=== PATIENT | female | born 1950 | race Caucasian/White ===

== ENCOUNTER 2018-12-31 11:17 | Inpatient (IN) | payer OTHER, MEDICARE ==
[~2018-12-31] VITALS: Ht 152.4 cm; Wt 73.0 kg
[2018-12-31] VITALS (27 sets, daily range): BP systolic 94–144; BP diastolic 42–72
[~2018-12-31 11:17] MED LIST: ASPI-555 PO; ATOR20TA65 PO; CHOL500050 PO; HYDR12.530 PO; LOSA100T58 PO
[2018-12-31] MEDS ORDERED: DAPTOMYCIN 500 MG in SODIUM CHLORIDE 0.9% 50 ML IV SCH (14:00)
[2018-12-31] MEDS ORDERED: HYDRALAZINE HCL 20 MG/ML VIAL IV PRN (14:30)
[2018-12-31] MEDS ORDERED: LIDOCAINE HCL-MPF 1% 2ML VIAL IVP PRN (14:30)
--- NOTE | 2018-12-31 14:30 | NUR ---
RECEIVED PT FROM [facility]. ASSESSMENT COMPLETED NOTED. DR. SOSA CALLED AND NOTIFIED OF PT ARRIVAL TO UNIT. PT DAUGHTERS INFORMATION GIVEN TO MD TO SPEAK TO HER REGARDING PLAN OF CARE. MD RETURNED CALL, PLAN FOR EXP LAP, ABDOMINAL WASHOUT AND NECESSARY PROCEDURES. DAUGHTER CALLED AND TELEPHONE CONSENT OBTAINED AND WITNESSED WELL DNR PER DAUGHTER REQUEST. SURGERY SCHEDULED. VS NOTED ON COMPUTER. CONTINUE TO MONITOR PT.
[2018-12-31] MEDS ORDERED: PHARMACY COMMUNICATION MISC SCH ×2 (14:45→18:45)
--- NOTE | 2018-12-31 15:00 | NUR ---
DR. SMITH, DR. PEDRO AND DR. MORA NOTIFIED OF PT ARRIVAL TO UNIT.
[2018-12-31 15:08] LABS: HEMATOCRIT 39.3 % (36-48); MEAN CORPUSCULAR HEMOGLOBIN 30.7 pg (27.0-33.0); MEAN CORPUSCULAR VOLUME 96.1 fL (79-99); NUCLEATED RED BLOOD CELLS 0.3 % (0.0-0.19); PLATELET COUNT (AUTO) 201 K/uL (130-400); RED BLOOD CELL COUNT(AUTO) 4.09 MIL/uL (4.00-5.50); RED CELL DISTRIBUTION WIDTH 19.6 % (11.0-15.5)
[2018-12-31 15:15] LABS: INR 1.09 (0.85-1.15); PROTHROMBIN TIME 11.4 SEC (9.6-11.6)
[2018-12-31 15:18] LABS: CREATININE 2.3 mg/dL (0.5-1.5); POTASSIUM 4.8 mmol/L (3.5-5.1)
[2018-12-31] MEDS ORDERED: ROCURONIUM 10MG/1ML SYR 10 MG/ML ML ONE (15:40)
[2018-12-31] MEDS ORDERED: EPHEDRINE SULFATE 50 MG/ML AMPULE ONE (15:41)
[2018-12-31] MEDS ORDERED: COMPOUND IV REFRIGERATED 1 EACH IVSOLN MISC PRN (16:00)
--- NOTE | 2018-12-31 16:00 | NUR ---
PT TAKEN TO SURGERY BY OR NURSE AND HEAD OF CONSERVATION IN STABLE CONDITION.
[2018-12-31] MEDS ORDERED: FENTANYL CITRATE PF 50 MCG/1 ML 2ML VIAL ONE (16:19)
--- NOTE | 2018-12-31 16:44 | NUR ---
Patient trached, on ventilator. Unable to obtain history for evaluation from patient, no family members available. Information gathered from last admission. Addendum: 12/31/18 at 1715 by JAY VIDALES RT Amended: Links added.
[2018-12-31] MEDS ORDERED: M.V.I. IV [ADULT] 10 ML in CLINIMIX E 5%-15% 2,000 ML IV SCH (16:54)
--- NOTE | 2018-12-31 17:45 | NUR ---
RECEIVED PT FROM OR. PT UNABLE TO OPEN EYES OR FOLLOW COMMANDS AT THIS TIME. TOLERATING VENT SETTINGS. [id number] TO ABD AND LEFT ILIOSTOMY INTACT. VS NOTED ON COMPUTER. NO S/S OF PAIN NOTED. CONTINUE TO MONITOR PT.
[2018-12-31] MEDS: MEROPENEM 500 MG VIAL IVP SCH (17:54)
[2018-12-31] MEDS ORDERED: INSULIN HUMULIN R 100 UNIT/ML 3ML SQ SCH ×2 (18:00→22:00)
[2018-12-31] MEDS ORDERED: ALBUMIN (HUMAN) 5% 250 ML IV SCH (18:15)
--- NOTE | 2018-12-31 18:25 | NUR ---
DR. MORA CALLED AND NOTIFIED OF PT ARRIVAL TO UNIT, NOTIFIED OF DECREASED URINE OUTPUT, VS, LAST BUN/CREAT RESULTS. NEW ORDERS RECEIVED AND NOTED.
[2018-12-31] MEDS: LACTATED RINGERS 1000ML 1,000 ML IV SCH (18:38)
[2018-12-31] MEDS: IPRATROPIUM/ALBUTEROL SULFATE 3 ML SOLUTION IH SCH ×2 (18:49→23:32)
--- NOTE | 2018-12-31 19:00 | NUR ---
ASSESSMENT ASSUMED CARE. DROWSY, SLIGHTLY AROUSABLE. TRACHE WITH VENT ON PRESCRIBED SETTINGS. ABD DRESSING INTACT WITH SMALL DIME SIZE DRAINAGE SPOT MARKED. PEG TUBE INTACT. LEFT ILEOSTOMY WITH SCANT AMOUNT OF SANGUINOUS DRAINAGE NOTED. LOMAX CATHETER SECURE & PATENT, SMALL AMT OF URINE OUTPUT NOTED. PENDING IV ALBUMIN PER MD ORDER. NOTIFIED PHARMACY. TPN AND LR INFUSING WELL VIA PICC LINE. R.T. IN ROOM PROVIDING ORAL CARE & SUCTIONING. BEDSIDE MONITORING SINUS RHYTHM HR 94. BLE'S WITH SCD'S. COMPLETE ASSESSMENT DOCUMENTED.
--- NOTE | 2018-12-31 19:21 | NUR ---
DR SMITH HERE TO SEE PT UPDATED.
--- NOTE | 2018-12-31 20:05 | NUR ---
nonresponsive to painful stimuli pupils reactive bilaterally. no cough or gag reflex. sinus rhythm hr 92 bp 120/67 o2 sat 97% not breathing over vent. notified dr torres. ordered abg's.
[2018-12-31 20:21] LABS: ABG BASE EXCESS -11.3 mmol/L (-2.0-3.0); ABG HCO3 14.1 mmol/L (21.0-28.0); ABG OXYGEN SATURATION 95.4 % (95.0-99.0); ABG PCO2 31 mmHg (32-45)
--- NOTE | 2018-12-31 20:40 | NUR ---
reported abg results to ochoa metal handler for benchmark. updated regarding patient status and current iv fluids, urine output, v/s. order received to give 2 amps of sodium bicarb.
[2018-12-31] MEDS ORDERED: SODIUM BICARB 50MEQ 50ML VIAL ONE (20:43)
[2018-12-31] MEDS ORDERED: SODIUM BICARB 50MEQ 50ML VIAL IV ONE (21:01)
--- NOTE | 2018-12-31 21:34 | NUR ---
NOW BREATHING OVER VENT WITH RR 22-23PM. SKIN WITH BETTER COLOR. NOW MORE RESPONSIVE. SHAKES HEAD AND ATTEMPTS TO OPEN EYES TO VERBAL STIMULI. Addendum: 12/31/18 at 2137 by STACY POSADA RN RN Amended: Links added.
[2019-01-01] VITALS (25 sets, daily range): BP systolic 79–162; BP diastolic 38–104
[2019-01-01] MEDS: METOPROLOL TARTRATE 50 MG TAB PO SCH ×4 (00:22→21:39)
[2019-01-01] MEDS: INSULIN HUMULIN R 100 UNIT/ML 3ML SQ SCH ×4 (01:59→18:17)
--- NOTE | 2019-01-01 02:27 | NUR ---
tachycardia/tachypnea sinus tachycardia with hr 107. respiratory rate 30-34pm. afebrile with axillary temp 98.4. asked if she is in pain and shakes head "no". will continue to monitor.
--- NOTE | 2019-01-01 04:00 | NUR ---
dressing change. rt abd dressing copiously soaked with serous sanguinous drainage. removed dressing; caridad drain noted and trickling serous sanguinous drainage. covered area with 4x4 gauze, abd pads, and secured with medipore tape.
[2019-01-01 04:13] LABS: HEMATOCRIT 42.4 % (36-48); MEAN CORPUSCULAR HEMOGLOBIN 32.3 pg (27.0-33.0); MEAN CORPUSCULAR HGB CONC 32.5 g/dL (32.0-36.0); MEAN CORPUSCULAR VOLUME 99.2 fL (79-99); NUCLEATED RED BLOOD CELLS 0.9 % (0.0-0.19); PLATELET COUNT (AUTO) 111 K/uL (130-400); RED BLOOD CELL COUNT(AUTO) 4.27 MIL/uL (4.00-5.50); RED CELL DISTRIBUTION WIDTH 20.7 % (11.0-15.5); WHITE BLOOD COUNT (AUTO) 10.5 K/uL (4.8-10.8)
[2019-01-01 04:22] LABS: ALBUMIN 1.8 g/dL (3.5-5.0); CREATININE 2.4 mg/dL (0.5-1.5); MAGNESIUM 2.2 mg/dL (1.80-2.40); PHOSPHORUS 6.4 mg/dL (2.5-4.9); POTASSIUM 4.5 mmol/L (3.5-5.1); THYROID STIMULATING HORMONE 1.7 uIU/mL (0.36-3.74)
--- NOTE | 2019-01-01 05:00 | NUR ---
bed bath given. allevyn dressing applied to sacral area. oral care provided. afebrile. heart rate has now decreased to 16-22pm. does not look to be in any apparent distress. respirations unlabored.
[2019-01-01] MEDS: LACTATED RINGERS 1000ML 1,000 ML IV SCH (05:43)
[2019-01-01] MEDS: MEROPENEM 500 MG VIAL IVP SCH ×2 (05:43→17:26)
[2019-01-01] MEDS: IPRATROPIUM/ALBUTEROL SULFATE 3 ML SOLUTION IH SCH ×4 (05:56→23:10)
[2019-01-01 07:26] LABS: ABG HCO3 19.5 mmol/L (21.0-28.0); ABG OXYGEN SATURATION 98.9 % (95.0-99.0); ABG PCO2 26 mmHg (32-45)
[2019-01-01] MEDS: FAMOTIDINE/PF 20 MG/2 ML VIAL IV SCH (08:13)
[2019-01-01] MEDS: FLUCONAZOLE 200 MG/NS 100 ML 100 ML IV SCH (08:13)
--- NOTE | 2019-01-01 08:35 | NUR ---
PT WAS RECEIVED IN BED, ON VENTILATOR VIA TRACH SHILEY 8, AC/10/500/30%/5 WITH SATURATIONS 100%. PT IS RESPONSIVE WITH NODDING YES OR NO TO SIMPLE QUESTIONS. PATIENT NODDED NO TO PAIN. HOB ELEVATED, PEG NOTED TO BE CLAMPED. ABD DRESSING TO MIDLINE INCISION NOTED WITH SMALL AMOUNT OF DRAINAGE. RIGHT LATERAL DRESSING NOTED TO BE SATURATED, DRESSING REMOVED AND CHANGED. INCISION WITH PREVIOUS ILEOSTOMY NOTED, SUTURES INTACT, PEN-ROLLS DRAIN NOTED. APPLIED 4X4s, ABDOMINAL PAD AND SECURED WITH MEDIPORE TAPE. LEFT ILEOSTOMY NOTED WITH MINIMAL AMOUNT OF OUTPUT. F/C NOTED WITH LIGHT RANI COLORED URINE, SECURED TO PATIENT AND DRAINING TO GRAVITY. SCDS ON TO BILATERAL LOWER EXTREMITIES. TELE WITH SR 99. WILL CONT TO MONITOR CLOSELY.
--- NOTE | 2019-01-01 10:54 | NUR ---
MD ROUNDS DR. SOSA IN TO SEE PATIENT. NEW ORDERS RECEIVED TO BE CARRIED OUT.
--- NOTE | 2019-01-01 11:32 | NUR ---
DC PLAN VISITED WITH PATIENT. PATIENT S/P EXP LAPATOMY. WILL CONTACT FAMILY TO SEE ABOUT PLAN OF CARE. WILL GET WITH RAFAEL TO SEE IF WILL NEED A RE AUTH IN ORDER TO RETURN TO [facility]. Addendum: 01/01/19 at 1137 by SUNDEEP JIMENEZ RN CM Amended: Links added.
--- NOTE | 2019-01-01 12:00 | NUR ---
MD ROUNDS DR. TRUJILLO IN TO EVALUATE PATIENT. NEW ORDERS RECEIVED TO BE CARRIED OUT.
[2019-01-01] MEDS ORDERED: HONEY 1 APPL/ML TUBE TP SCH (12:15)
--- NOTE | 2019-01-01 14:17 | NUR ---
PEG FEEDING INITIATED AT THIS TIME.
--- NOTE | 2019-01-01 14:58 | NUR ---
MD ROUNDS DR. CARLISLE IN TO SEE PATIENT.
--- NOTE | 2019-01-01 16:29 | NUR ---
ABD DRESSING CHANGE DONE TO RIGHT LATERAL ABD AND MID ABDOMEN. MID ABDOMINAL INCISION NOTED WITH 2 PEN-ROLLS DRAINS TO TOP AND BOTTOM OF INCISION. LEFT ARM AND RIGHT FOOT DRESSINGS APPLIED MEDIPLEX ORDERED.
--- NOTE | 2019-01-01 17:17 | NUR ---
INFORMED BY MANUEL BURCH, THAT PT'S TRACHEOSTOMY APPEARS ABNORMAL. DR. TRUJILLO HERE AT THE TIME, ASSESSED AREA. NEW ORDERS RECEIVED TO BE CARRIED OUT. WILL CONT TO MONITOR.
[2019-01-01] MEDS: DAPTOMYCIN 500 MG in SODIUM CHLORIDE 0.9% 50 ML IV SCH (17:26)
[2019-01-01] MEDS: ATORVASTATIN CALCIUM 20 MG TABLET PO SCH (21:39)
[2019-01-01] MEDS: 1/2 NORMAL SALINE 1,000 ML IV SCH (21:39)
[2019-01-01] MEDS: HONEY 1 APPL/ML TUBE TP SCH (21:40)
[2019-01-02] VITALS (23 sets, daily range): BP systolic 85–150; BP diastolic 32–77
[2019-01-02] MEDS: INSULIN HUMULIN R 100 UNIT/ML 3ML SQ SCH ×5 (00:14→18:30)
[2019-01-02 03:46] LABS: MEAN CORPUSCULAR HEMOGLOBIN 31.6 pg (27.0-33.0); MEAN CORPUSCULAR HGB CONC 32.6 g/dL (32.0-36.0); NUCLEATED RED BLOOD CELLS 0.8 % (0.0-0.19); PLATELET COUNT (AUTO) 122 K/uL (130-400); RED BLOOD CELL COUNT(AUTO) 3.71 MIL/uL (4.00-5.50); RED CELL DISTRIBUTION WIDTH 19.4 % (11.0-15.5); WHITE BLOOD COUNT (AUTO) 14.5 K/uL (4.8-10.8)
[2019-01-02 04:02] LABS: ALANINE AMINOTRANSFERASE 32 U/L (12-78); ALBUMIN 1.7 g/dL (3.5-5.0); ASPARTATE AMINOTRANSFERASE 50 U/L (10-37); BILIRUBIN,TOTAL 0.9 mg/dL (0.2-1.0); CARBON DIOXIDE 26 mmol/L (21-32); CHLORIDE 104 mmol/L (101-111); CREATININE 1.9 mg/dL (0.5-1.5); GLOMERULAR FILTR. RATE CALC 28 mL/min (>60); GLUCOSE,RANDOM 102 mg/dL (70-105); PHOSPHORUS 6.2 mg/dL (2.5-4.9); POTASSIUM 5.5 mmol/L (3.5-5.1); SODIUM SERUM 139 mmol/L (136-145); TOTAL PROTEIN, SERUM 5.6 g/dL (6.0-8.3)
[2019-01-02 04:13] LABS: AMMONIA < 10 umol/L (11-32)
[2019-01-02 04:23] LABS: UREA NITROGEN, BLOOD 108 mg/dL (7-18)
[2019-01-02] MEDS: IPRATROPIUM/ALBUTEROL SULFATE 3 ML SOLUTION IH SCH ×4 (06:16→23:03)
[2019-01-02] MEDS: MEROPENEM 500 MG VIAL IVP SCH ×2 (06:32→17:54)
--- NOTE | 2019-01-02 08:00 | NUR ---
PATIENT RECEIVED IN BED, HOB ELEVATED. PT ON JEVITY 1.2 @ 40ML/HR VIA PEG, NO RESIDUALS NOTED. ABD DRESSINGS D/I, LEFT ILEOSTOMY NOTED WITH YELLOW OUTPUT. F/C DRAINING TO GRAVITY, NO COMPLICATIONS NOTED. PT CONT ON VENTILATOR VIA TRACH ON AC/10/500/30%/5 WITH SATURATIONS 100%. SR UP X 4, WILL CONT TO MONITOR CLOSELY. ANSWERS SIMPLE YES/NO QUESTIONS BY MOVING HER HEAD. TELE SR 80s. Addendum: 01/02/19 at 0936 by LEVI PADILLA RN RN Amended: Links added.
[2019-01-02] MEDS: ASPIRIN 81MG TAB.CHEW PO SCH (08:26)
[2019-01-02] MEDS: 1/2 NORMAL SALINE 1,000 ML IV SCH (08:26)
[2019-01-02] MEDS: FLUCONAZOLE 200 MG/NS 100 ML 100 ML IV SCH (08:26)
[2019-01-02] MEDS: FAMOTIDINE/PF 20 MG/2 ML VIAL IV SCH (08:26)
--- NOTE | 2019-01-02 08:50 | NUR ---
MD ROUNDS LOU[facility] PORTER HALL PORTER IN TO SEE PATIENT. SHE WAS UPDATED ON STATUS. NEW ORDERS TO BE CARRIED OUT.
[2019-01-02] MEDS: METOPROLOL TARTRATE 50 MG TAB PO SCH ×4 (09:00→20:28)
[2019-01-02] MEDS: LOSARTAN 100 MG TABLET PO SCH (09:00)
--- NOTE | 2019-01-02 10:45 | NUR ---
MD ROUNDS DR. SOSA IN TO SEE PATIENT. NO NEW ORDERS RECEIVED.
--- NOTE | 2019-01-02 11:30 | NUR ---
MD ROUNDS DR. CARLISLE IN TO SEE PATIENT.
--- NOTE | 2019-01-02 12:48 | NUR ---
MD ROUNDS DR. LYONS IN TO SEE PATIENT. NEW ORDERS RECEIVED TO BE CARRIED OUT.
[2019-01-02] MEDS: HONEY 1 APPL/ML TUBE TP SCH (13:28)
--- NOTE | 2019-01-02 14:35 | NUR ---
RECEIVED A CALL FROM DR. ANGELES. INQUIRED ABOUT PATIENT. INSTRUCTED TO ADD PATIENT TO DR. MARISSA PERERA, HE WILL FOLLOW UP WITH PATIENT TOMORROW. NEW ORDERS RECEIVED TO BE CARRIED OUT.
[2019-01-02] MEDS: ATORVASTATIN CALCIUM 20 MG TABLET PO SCH (20:28)
[2019-01-03] VITALS (25 sets, daily range): BP systolic 70–133; BP diastolic 31–103
[2019-01-03] MEDS: INSULIN HUMULIN R 100 UNIT/ML 3ML SQ SCH ×5 (01:30→18:00)
[2019-01-03] MEDS: 1/2 NORMAL SALINE 1,000 ML IV SCH ×2 (01:41→13:50)
[2019-01-03 03:44] LABS: EOSINOPHILS % (AUTO) 0.9 % (0.0-8.0); HEMATOCRIT 32.1 % (36-48); LYMPHOCYTES % (AUTO) 33.8 % (21.0-51.0); MEAN CORPUSCULAR HEMOGLOBIN 30.8 pg (27.0-33.0); MEAN CORPUSCULAR HGB CONC 32.2 g/dL (32.0-36.0); MEAN CORPUSCULAR VOLUME 95.6 fL (79-99); MONOCYTES % (AUTO) 4.4 % (3.0-13.0); NEUTROPHILS % (AUTO) 59.9 % (40.0-77.0); NUCLEATED RED BLOOD CELLS 0.6 % (0.0-0.19); PLATELET COUNT (AUTO) 138 K/uL (130-400); RED BLOOD CELL COUNT(AUTO) 3.36 MIL/uL (4.00-5.50); RED CELL DISTRIBUTION WIDTH 19.4 % (11.0-15.5); WHITE BLOOD COUNT (AUTO) 12.9 K/uL (4.8-10.8)
[2019-01-03 03:57] LABS: ALBUMIN 1.5 g/dL (3.5-5.0); BILIRUBIN,TOTAL 0.9 mg/dL (0.2-1.0); CREATININE 1.8 mg/dL (0.5-1.5); MAGNESIUM 1.9 mg/dL (1.80-2.40); PHOSPHORUS 6.2 mg/dL (2.5-4.9); TOTAL PROTEIN, SERUM 5.6 g/dL (6.0-8.3)
[2019-01-03] MEDS: MEROPENEM 500 MG VIAL IVP SCH ×2 (06:26→17:26)
[2019-01-03] MEDS: IPRATROPIUM/ALBUTEROL SULFATE 3 ML SOLUTION IH SCH ×3 (07:27→18:29)
[2019-01-03] MEDS: ASPIRIN 81MG TAB.CHEW PO SCH (09:11)
[2019-01-03] MEDS: HONEY 1 APPL/ML TUBE TP SCH (09:11)
[2019-01-03] MEDS: FAMOTIDINE/PF 20 MG/2 ML VIAL IV SCH (09:11)
[2019-01-03] MEDS: METOPROLOL TARTRATE 50 MG TAB PO SCH ×3 (09:11→21:00)
[2019-01-03] MEDS: LOSARTAN 100 MG TABLET PO SCH (09:11)
[2019-01-03] MEDS: FLUCONAZOLE 200 MG/NS 100 ML 100 ML IV SCH (09:11)
--- NOTE | 2019-01-03 09:20 | NUR ---
MD ROUNDS DR. CARLISLE IN TO SEE PATIENT.
--- NOTE | 2019-01-03 09:44 | NUR ---
MD PAUL KESSLER FOR DR. CURTIS, IN TO SEE PATIENT. UPDATED ON STATUS.
--- NOTE | 2019-01-03 10:42 | NUR ---
MD ROUNDS DR. LYONS IN TO SEE PATIENT. NEW ORDERS RECEIVED TO BE CARRIED OUT.
[2019-01-03] MEDS ORDERED: LORAZEPAM 2 MG/ML 1 ML VIAL IVP PRN (11:15)
--- NOTE | 2019-01-03 12:41 | NUR ---
RECEIVED CALL FROM RUBY MARTINEZ PANTS BUSHELER, INFORMED HER OF DR. ANGELES'S REQUEST FOR NEW FORMULA D/T ELEVATED K LEVEL. INSTRUCTED TO START ON NEPRO.
--- NOTE | 2019-01-03 15:25 | NUR ---
ROUNDS DR. CURTIS IN TO SEE PT. MADE AWARE OF DECREASED BP. NEW PARAMETERS GIVEN FOR LOSARTAN AND METOPROLOL.
--- NOTE | 2019-01-03 17:00 | NUR ---
MD ROUNDS DR. ANGELES IN TO SEE PATIENT. MD MADE AWARE OF TUBE FEEDING CHANGE, LABS REVIEWED AND HE DISCONTINUED LOSARTAN D/T DECREASED BP. NEW ORDERS TO BE CARRIED OUT.
--- NOTE | 2019-01-03 18:00 | NUR ---
DRESSING TO RIGHT ARM REMOVED D/T EXCESSIVE MOISTURE FROM WEEPING. STOMA CARE PERFORMED AND NEW WAFER APPLIED, ONE PIECE. STOMA WAS BEEFY RED WITH NO COMPLICATIONS NOTED.
[2019-01-03] MEDS: DAPTOMYCIN 500 MG in SODIUM CHLORIDE 0.9% 50 ML IV SCH (18:55)
[2019-01-03] MEDS ORDERED: NOREPINEPHRINE 4MG/NS 250ML 250 ML IV SCH (20:00)
[2019-01-03] MEDS: LACTATED RINGERS 1000ML IV SCH ×2 (20:16→21:35)
[2019-01-03 21:27] LABS: MEAN CORPUSCULAR HEMOGLOBIN 30.5 pg (27.0-33.0); MEAN CORPUSCULAR HGB CONC 31.9 g/dL (32.0-36.0); MEAN CORPUSCULAR VOLUME 95.8 fL (79-99); NUCLEATED RED BLOOD CELLS 0.2 % (0.0-0.19); PLATELET COUNT (AUTO) 131 K/uL (130-400); RED BLOOD CELL COUNT(AUTO) 2.71 MIL/uL (4.00-5.50); RED CELL DISTRIBUTION WIDTH 19.2 % (11.0-15.5); WHITE BLOOD COUNT (AUTO) 12.7 K/uL (4.8-10.8)
[2019-01-03] MEDS: ATORVASTATIN CALCIUM 20 MG TABLET PO SCH (21:35)
[2019-01-03 22:12] LABS: BAND NEUTROPHILS % (MANUAL) 13 % (0-2); LYMPHOCYTES % (MANUAL) 16 % (22-44); MAN.DIFF COMMENT-IMPRESSION MANUAL DIFFERENTIAL; MONOCYTES % (MANUAL) 11 % (2-9); PLATELET MORPHOLOGY COMMENT ADEQUATE; SEGMENTED NEUTROPHILS % 60 % (40-70)
[2019-01-03 23:55] LABS: ALBUMIN 1.3 g/dL (3.5-5.0); CREATININE 1.7 mg/dL (0.5-1.5); POTASSIUM 4.3 mmol/L (3.5-5.1); TOTAL PROTEIN, SERUM 4.8 g/dL (6.0-8.3)
[2019-01-04] VITALS (24 sets, daily range): BP systolic 94–140; BP diastolic 33–72
[2019-01-04] MEDS: IPRATROPIUM/ALBUTEROL SULFATE 3 ML SOLUTION IH SCH ×5 (00:14→23:10)
[2019-01-04] MEDS: HYDROCORTISONE SOD SUCCINATE 100 MG/2 ML VIAL IV SCH ×4 (00:31→23:13)
[2019-01-04] MEDS: INSULIN HUMULIN R 100 UNIT/ML 3ML SQ SCH ×7 (00:53→23:21)
[2019-01-04] MEDS: 1/2 NORMAL SALINE 1,000 ML IV SCH ×2 (01:43→15:12)
[2019-01-04 04:17] LABS: BASOPHILS % (AUTO) 0.2 % (0.0-5.0); EOSINOPHILS % (AUTO) 0.3 % (0.0-8.0); HEMATOCRIT 30.8 % (36-48); LYMPHOCYTES % (AUTO) 16.5 % (21.0-51.0); MEAN CORPUSCULAR HEMOGLOBIN 32.1 pg (27.0-33.0); MEAN CORPUSCULAR HGB CONC 33.3 g/dL (32.0-36.0); MEAN CORPUSCULAR VOLUME 96.4 fL (79-99); MONOCYTES % (AUTO) 2.7 % (3.0-13.0); NEUTROPHILS % (AUTO) 80.3 % (40.0-77.0); NUCLEATED RED BLOOD CELLS 0.1 % (0.0-0.19); PLATELET COUNT (AUTO) 131 K/uL (130-400); RED BLOOD CELL COUNT(AUTO) 3.19 MIL/uL (4.00-5.50); RED CELL DISTRIBUTION WIDTH 18.5 % (11.0-15.5)
[2019-01-04 04:36] LABS: CREATININE 1.6 mg/dL (0.5-1.5); MAGNESIUM 1.6 mg/dL (1.80-2.40); PHOSPHORUS 6.1 mg/dL (2.5-4.9); POTASSIUM 4.3 mmol/L (3.5-5.1)
[2019-01-04] MEDS: MEROPENEM 500 MG VIAL IVP SCH ×2 (06:08→17:27)
[2019-01-04] MEDS: MAGNESIUM 2GM PREMIX 50ML 50 ML IV PRN (07:24)
[2019-01-04] MEDS: FLUCONAZOLE 200 MG/NS 100 ML 100 ML IV SCH (08:53)
[2019-01-04] MEDS: FAMOTIDINE/PF 20 MG/2 ML VIAL IV SCH (08:53)
[2019-01-04] MEDS: ASPIRIN 81MG TAB.CHEW PO SCH (08:53)
[2019-01-04] MEDS: HONEY 1 APPL/ML TUBE TP SCH ×2 (09:00→17:30)
--- NOTE | 2019-01-04 13:15 | NUR ---
DR. SOSA IN TO SEE PT AND WAS ABLE TO EXPLAIN TO HER WHY SHE NEEDED SURGERY AGAIN - HAD PT'S FULL ATTENTION AND SHE NODDED IN UNDERSTANDING.
--- NOTE | 2019-01-04 13:29 | NUR ---
Nutrition Intervention: Nutrition consult for Elevated Potassium Levels. Pt admitted for sepsis. Currently on Nepro @ 60ml/hr, 100ml Q6H free water. Recommend rate change to 40ml/hr, 150ml Q6H of free water. RD recommendations in pt's chart. Pt with elevated Phos at 6.1, recommend phosphate binder. Elevated protein needs due to multiple wounds and Alb 1.3. Recommendations: Nepro @ 40ml/hr, 150ml free water Q6H. Monitor TF tolerance. Consult RD as nutrition concern arise. Addendum: 01/04/19 at [address] Amended: Links added.
--- NOTE | 2019-01-04 14:15 | NUR ---
CPAP TRIAL: AFTER APPROX 3 HR AND 45 MIN, PT EXPRESSING SOB WITH RR 28 AND LABORED - RT NOTIFIED
--- NOTE | 2019-01-04 18:00 | NUR ---
RT HAND WITH OOZING FROM PRIOR IV SITE - COVERED WITH 4X4S AND KERLIX.
[2019-01-04] MEDS: ATORVASTATIN CALCIUM 20 MG TABLET PO SCH (20:01)
[2019-01-04] MEDS: METOPROLOL TARTRATE 25 MG TAB PO SCH (20:01)
[2019-01-05] VITALS (24 sets, daily range): BP systolic 110–154; BP diastolic 36–84
[2019-01-05] MEDS: 1/2 NORMAL SALINE 1,000 ML IV SCH (02:03)
[2019-01-05 03:22] LABS: BASOPHILS % (AUTO) 0.5 % (0.0-5.0); EOSINOPHILS % (AUTO) 0.1 % (0.0-8.0); HEMATOCRIT 30.1 % (36-48); LYMPHOCYTES % (AUTO) 22.5 % (21.0-51.0); MEAN CORPUSCULAR HEMOGLOBIN 30.9 pg (27.0-33.0); MEAN CORPUSCULAR HGB CONC 32.7 g/dL (32.0-36.0); MEAN CORPUSCULAR VOLUME 94.6 fL (79-99); MONOCYTES % (AUTO) 3.6 % (3.0-13.0); NEUTROPHILS % (AUTO) 73.3 % (40.0-77.0); NUCLEATED RED BLOOD CELLS 0.1 % (0.0-0.19); PLATELET COUNT (AUTO) 188 K/uL (130-400); RED BLOOD CELL COUNT(AUTO) 3.18 MIL/uL (4.00-5.50); RED CELL DISTRIBUTION WIDTH 18.9 % (11.0-15.5); WHITE BLOOD COUNT (AUTO) 10.1 K/uL (4.8-10.8)
[2019-01-05 03:31] LABS: CREATININE 1.2 mg/dL (0.5-1.5); MAGNESIUM 1.7 mg/dL (1.80-2.40); PHOSPHORUS 4.7 mg/dL (2.5-4.9); POTASSIUM 3.2 mmol/L (3.5-5.1)
[2019-01-05] MEDS: MEROPENEM 500 MG VIAL IVP SCH ×2 (05:40→18:07)
[2019-01-05] MEDS: POTASSIUM CHLORIDE 20MEQ/100ML 100 ML IV PRN ×2 (05:40→09:21)
[2019-01-05] MEDS: INSULIN HUMULIN R 100 UNIT/ML 3ML SQ SCH ×4 (05:50→23:18)
[2019-01-05] MEDS: MAGNESIUM 2GM PREMIX 50ML 50 ML IV PRN (05:57)
[2019-01-05] MEDS: IPRATROPIUM/ALBUTEROL SULFATE 3 ML SOLUTION IH SCH ×4 (06:35→23:47)
--- NOTE | 2019-01-05 09:07 | NUR ---
Begin CPAP trial Addendum: 01/05/19 at 0913 by JAY VIDALES RT Amended: Links added.
[2019-01-05] MEDS: FAMOTIDINE/PF 20 MG/2 ML VIAL IV SCH (09:08)
[2019-01-05] MEDS: ASPIRIN 81MG TAB.CHEW PO SCH (09:08)
[2019-01-05] MEDS: FLUCONAZOLE 200 MG/NS 100 ML 100 ML IV SCH (09:08)
[2019-01-05] MEDS: METOPROLOL TARTRATE 25 MG TAB PO SCH ×2 (09:08→20:45)
[2019-01-05] MEDS ORDERED: MAGNESIUM 2GM PREMIX 50ML 50 ML IV SCH (10:30)
[2019-01-05] MEDS: HYDROCORTISONE SOD SUCCINATE 100 MG/2 ML VIAL IV SCH ×2 (13:09→23:55)
--- NOTE | 2019-01-05 14:12 | NUR ---
DC PLAN SPOKE TO DAUGHTER RECEIVED OKAY FOR [facility] REFERRAL. INFO SENT TO REP. PENDING INSURANCE AUTH. Addendum: 01/05/19 at 1414 by SUNDEEP JIMENEZ RN CM Amended: Links added.
--- NOTE | 2019-01-05 15:00 | NUR ---
ABD DRSG CHANGE: INCISION SUTURES INTACT WITHOUT SEPARATION. UMER TIMES 3 - AREAS OF TAPE BURN OR OPEN SORES ACROSS ABD - CAREFUL NOT TO USE TAPE OVER THESE AREAS - PAPERTAPE UTILIZED ON SKIN FOR DRSG. NO S/S OF INFECTION - ALL DRAINAGE ON DRSG IS SEROUS
--- NOTE | 2019-01-05 16:10 | NUR ---
CPAP FOR 7 HRS - NOW DROP IN SAT WITH INCREASE RR AND SLIGHT SOB, RETURNED TO A/C.
[2019-01-05] MEDS: DAPTOMYCIN 500 MG in SODIUM CHLORIDE 0.9% 50 ML IV SCH (18:18)
[2019-01-05] MEDS ORDERED: SODIUM CHLORIDE 0.9% 500ML 500 ML IV SCH (19:15)
[2019-01-05] MEDS: ATORVASTATIN CALCIUM 20 MG TABLET PO SCH (20:45)
[2019-01-06] VITALS (24 sets, daily range): BP systolic 123–164; BP diastolic 43–80
[2019-01-06 04:37] LABS: APPEARANCE,URINE Clear (CLEAR); BILIRUBIN,URINE Small (NEGATIVE); COLOR,URINE Dark Yellow (YELLOW); GLUCOSE, URINE (UA) Negative (NEGATIVE); KETONES,URINE Negative (NEGATIVE); LEUKOCYTE ESTERASE ,URINE Trace (NEGATIVE); NITRATE,URINE Negative (NEGATIVE); OCCULT BLOOD,URINE Nonhemolyzed Trace (NEGATIVE); PROTEIN,URINE POS 1+ mg/dL (NEGATIVE)
[2019-01-06 05:06] LABS: BACTERIA,URINE None Seen /HPF (None Seen); RBC,URINE 0-1 /HPF (0-1); WBC,URINE 0-1 /HPF (0-1)
[2019-01-06 05:07] LABS: AMORPHOUS SEDIMENT,UR Rare /LPF (None Seen); MUCUS,URINE Rare LPF (None Seen); SQUAMOUS EPITHELIAL CELL,UR Few /HPF (0-2)
[2019-01-06] MEDS: MEROPENEM 500 MG VIAL IVP SCH ×2 (05:43→17:29)
[2019-01-06 05:53] LABS: ABG HCO3 17.5 mmol/L (21.0-28.0); ABG OXYGEN SATURATION 99.3 % (95.0-99.0); ABG PCO2 22 mmHg (32-45)
[2019-01-06] MEDS: INSULIN HUMULIN R 100 UNIT/ML 3ML SQ SCH ×3 (05:54→18:15)
[2019-01-06 06:09] LABS: HEMATOCRIT 33.4 % (36-48); MEAN CORPUSCULAR HEMOGLOBIN 31.2 pg (27.0-33.0); MEAN CORPUSCULAR HGB CONC 32.8 g/dL (32.0-36.0); NUCLEATED RED BLOOD CELLS 0.1 % (0.0-0.19); PLATELET COUNT (AUTO) 245 K/uL (130-400); RED BLOOD CELL COUNT(AUTO) 3.52 MIL/uL (4.00-5.50); RED CELL DISTRIBUTION WIDTH 18.8 % (11.0-15.5); WHITE BLOOD COUNT (AUTO) 10.4 K/uL (4.8-10.8)
[2019-01-06 06:10] LABS: CREATININE 0.8 mg/dL (0.5-1.5); POTASSIUM 3.8 mmol/L (3.5-5.1)
[2019-01-06] MEDS: IPRATROPIUM/ALBUTEROL SULFATE 3 ML SOLUTION IH SCH ×4 (06:16→23:20)
--- NOTE | 2019-01-06 07:30 | NUR ---
PT RECEIVED IN BED, ALERT, ON VENTILATOR VIA TRACH WITH THE FOLLOWING SETTINGS:SHILEY 8/AC/8/500/30%/5 WITH SATURATIONS AT 100%. NOTED VIA PEG, NEPRO AT 60 ML/HR GOAL RATE, TOLERATING FEEDINGS WELL. 1/2 NS KVO VIA NANCY PICC LINE ALL PORTS PATENT. PT IS DNR. ABD DRESSING IS D/I AND F/C DRAINING TO GRAVITY. PLAN FOR CPAP TRIALS AND TRACH COLLAR IS TOLERATES. HOB ELEVATED. TELE WITH SR 90s, WILL CONT TO MONITOR CLOSELY.
[2019-01-06] MEDS: METOPROLOL TARTRATE 25 MG TAB PO SCH ×2 (08:35→20:52)
[2019-01-06] MEDS: FAMOTIDINE/PF 20 MG/2 ML VIAL IV SCH (08:35)
[2019-01-06] MEDS: FLUCONAZOLE 200 MG/NS 100 ML 100 ML IV SCH (08:36)
[2019-01-06] MEDS: HONEY 1 APPL/ML TUBE TP SCH (08:36)
[2019-01-06] MEDS: ASPIRIN 81MG TAB.CHEW PO SCH (08:36)
--- NOTE | 2019-01-06 11:40 | NUR ---
MD ROUNDS DR. SMITH IN TO SEE PATIENT. UPDATED ON STATUS. NEW ORDERS RECEIVED TO BE CARRIED OUT.
[2019-01-06] MEDS: HYDROCORTISONE SOD SUCCINATE 100 MG/2 ML VIAL IV SCH (12:13)
--- NOTE | 2019-01-06 13:55 | NUR ---
RD Follow up. Patient tolerating Continuous tube feeding, Nepro 60mls/hr. Patient with no tube feeding residuals. Patient LBM 01/06/19. Patient with multiple PU (L. Buttocks/L. Thigh/Coccyx, Sacral), Rec to add Hoang BID. No additional nutrition concerns as per RN. Patient monitored labs: BUN 57, Glu 158, Ca 7.7, Alb 1.3. RD to continue to monitor. Please notify RD as nutritional concerns arise. Thank you. Addendum: 01/06/19 at [address] Amended: Links added.
--- NOTE | 2019-01-06 15:42 | NUR ---
PT ON TRACH COLLAR 40%, TOLERATING WELL. REFER TO RESPIRATORY THERAPY NOTES.
--- NOTE | 2019-01-06 16:55 | NUR ---
C consult Patient assessed as ordered. Patient with moisture associated irritation to peristomal skin of tracheostomy. [facility] recommendation submitted.
[2019-01-06] MEDS: ATORVASTATIN CALCIUM 20 MG TABLET PO SCH (20:52)
[2019-01-07] VITALS (24 sets, daily range): BP systolic 125–176; BP diastolic 28–94
[2019-01-07] MEDS: HYDROCORTISONE SOD SUCCINATE 100 MG/2 ML VIAL IV SCH ×2 (00:47→12:37)
[2019-01-07] MEDS: INSULIN HUMULIN R 100 UNIT/ML 3ML SQ SCH ×4 (06:00→18:17)
[2019-01-07] MEDS: MEROPENEM 500 MG VIAL IVP SCH ×2 (06:17→17:03)
[2019-01-07] MEDS: IPRATROPIUM/ALBUTEROL SULFATE 3 ML SOLUTION IH SCH ×4 (06:18→23:49)
[2019-01-07 07:18] LABS: CREATININE 0.6 mg/dL (0.5-1.5); POTASSIUM 3.7 mmol/L (3.5-5.1)
[2019-01-07 07:57] LABS: BASOPHILS % (AUTO) 0.4 % (0.0-5.0); EOSINOPHILS % (AUTO) 0.3 % (0.0-8.0); HEMATOCRIT 36.4 % (36-48); LYMPHOCYTES % (AUTO) 30.8 % (21.0-51.0); MEAN CORPUSCULAR HEMOGLOBIN 30.1 pg (27.0-33.0); MEAN CORPUSCULAR HGB CONC 30.2 g/dL (32.0-36.0); MEAN CORPUSCULAR VOLUME 99.7 fL (79-99); MONOCYTES % (AUTO) 5.8 % (3.0-13.0); NEUTROPHILS % (AUTO) 62.7 % (40.0-77.0); NUCLEATED RED BLOOD CELLS 0.1 % (0.0-0.19); PLATELET COUNT (AUTO) 325 K/uL (130-400); RED BLOOD CELL COUNT(AUTO) 3.65 MIL/uL (4.00-5.50); RED CELL DISTRIBUTION WIDTH 19.6 % (11.0-15.5); WHITE BLOOD COUNT (AUTO) 15.1 K/uL (4.8-10.8)
[2019-01-07] MEDS: HONEY 1 APPL/ML TUBE TP SCH (09:00)
[2019-01-07] MEDS: FLUCONAZOLE 200 MG/NS 100 ML 100 ML IV SCH (09:10)
[2019-01-07] MEDS: FAMOTIDINE/PF 20 MG/2 ML VIAL IV SCH (09:10)
[2019-01-07] MEDS: METOPROLOL TARTRATE 25 MG TAB PO SCH ×2 (09:10→21:55)
[2019-01-07] MEDS: ASPIRIN 81MG TAB.CHEW PO SCH (09:10)
--- NOTE | 2019-01-07 09:20 | NUR ---
SOCAR KESSLER FOR DR. MERLY SPARROW IN TO SEE PATIENT.
--- NOTE | 2019-01-07 10:00 | NUR ---
VIVIANE Thacker WITH DR. SOSA, IN TO SEE PATIENT. SHE REMOVED ABD DRESSING TO ASSESS SITE. NEW DRESSING REAPPLIED PER MD ORDERS. PT TOLERATED WELL.
--- NOTE | 2019-01-07 10:10 | NUR ---
MD ROUNDS DR. MERLY SPARROW IN TO SEE PATIENT. UPDATED ON STATUS.
--- NOTE | 2019-01-07 12:20 | NUR ---
MD ROUNDS DR. SOSA IN TO SEE PATIENT.
--- NOTE | 2019-01-07 15:30 | NUR ---
MD ROUNDS DR. CARLISLE IN TO SEE PATIENT. UPDATED OM STATUS.
[2019-01-07] MEDS: DAPTOMYCIN 500 MG in SODIUM CHLORIDE 0.9% 50 ML IV SCH (18:16)
--- NOTE | 2019-01-07 19:40 | NUR ---
REPORT REPORT GIVEN TO DANIEL DICKINSON. CARE ENDORSED
[2019-01-07] MEDS: ATORVASTATIN CALCIUM 20 MG TABLET PO SCH (21:55)
[2019-01-08] VITALS (23 sets, daily range): BP systolic 119–182; BP diastolic 47–79
[2019-01-08] MEDS: HYDROCORTISONE SOD SUCCINATE 100 MG/2 ML VIAL IV SCH ×2 (00:49→11:36)
[2019-01-08] MEDS: INSULIN HUMULIN R 100 UNIT/ML 3ML SQ SCH ×4 (00:52→18:40)
[2019-01-08 03:30] LABS: HEMATOCRIT 33.9 % (36-48); MEAN CORPUSCULAR HEMOGLOBIN 31.7 pg (27.0-33.0); MEAN CORPUSCULAR HGB CONC 33.3 g/dL (32.0-36.0); MEAN CORPUSCULAR VOLUME 95.3 fL (79-99); NUCLEATED RED BLOOD CELLS 0.1 % (0.0-0.19); PLATELET COUNT (AUTO) 351 K/uL (130-400); RED BLOOD CELL COUNT(AUTO) 3.55 MIL/uL (4.00-5.50); RED CELL DISTRIBUTION WIDTH 18.3 % (11.0-15.5); WHITE BLOOD COUNT (AUTO) 12.3 K/uL (4.8-10.8)
[2019-01-08 03:38] LABS: CREATININE 0.6 mg/dL (0.5-1.5); POTASSIUM 3.2 mmol/L (3.5-5.1)
[2019-01-08] MEDS: POTASSIUM CHLORIDE 20MEQ/100ML 100 ML IV PRN (04:15)
[2019-01-08] MEDS: IPRATROPIUM/ALBUTEROL SULFATE 3 ML SOLUTION IH SCH ×4 (06:32→23:12)
[2019-01-08] MEDS: MEROPENEM 500 MG VIAL IVP SCH ×2 (06:46→18:39)
--- NOTE | 2019-01-08 08:02 | NUR ---
CHART CHECK. Pt IS A 68 YEAR OLD FEMALE WITH THE FOLLOWING PROBLEM LISTS: SEPSIS, SEVERE DUE TO BOWEL PERFORATION, IMPROVING, BOWEL PERFORATION NOTED AT ILEOSTOMY SITE STATUS POST EXPLORATORY LAPAROTOMY WITH REVISION OF ILEOSTOMY 12/31/2018, MULTIORGAN DYSFUNCTION SECONDARY TO SEPSIS- IMPROVING, [id number] HYPOXEMIC RESPIRATORY FAILURE-STATUS POST TRACHEOSTOMY, PAROXYSMAL ATRIAL FIBRILLATION, SEVERE PROTEIN-CALORIE MALNUTRITION, ANASARCA, DECUBITUS ULCERATION TO POLYNEUROPATHY, ACUTE KIDNEY INJURY WITH UNDERLYING CHRONIC KIDNEY DISEASE, DYSPHAGIA, STATUS POST PERCUTANEOUS ENDOSCOPIC GASTROSTOMY, UNDERLYING GRAVES' DISEASE EXACERBATION. PT CURRENTLY TOLERATING TRACH COLLAR. POSSIBLE PMV TRIALS PENDING MD DIALLO. SKILLED SPEECH THERAPY IS RECOMMENDED AT THIS TIME. Addendum: 01/08/19 at 0811 by TAYLER SIGALA, [facility] Amended: Links added.
[2019-01-08] MEDS: HONEY 1 APPL/ML TUBE TP SCH (09:00)
[2019-01-08] MEDS: METOPROLOL TARTRATE 25 MG TAB PO SCH ×2 (09:30→21:08)
[2019-01-08] MEDS: ASPIRIN 81MG TAB.CHEW PO SCH (09:30)
[2019-01-08] MEDS: FLUCONAZOLE 200 MG/NS 100 ML 100 ML IV SCH (09:30)
[2019-01-08] MEDS: FAMOTIDINE/PF 20 MG/2 ML VIAL IV SCH (09:30)
--- NOTE | 2019-01-08 10:38 | NUR ---
COGNITIVE-LINGUISTIC EVALUATION COMPLETED. PATIENT INFORMATION: Pt IS A 68 YEAR OLD FEMALE WITH THE FOLLOWING PROBLEM LISTS: SEPSIS, SEVERE DUE TO BOWEL PERFORATION, IMPROVING, BOWEL PERFORATION NOTED AT ILEOSTOMY SITE STATUS POST EXPLORATORY LAPAROTOMY WITH REVISION OF ILEOSTOMY 12/31/2018, MULTIORGAN DYSFUNCTION SECONDARY TO SEPSIS- IMPROVING, [id number] HYPOXEMIC RESPIRATORY FAILURE-STATUS POST TRACHEOSTOMY, PAROXYSMAL ATRIAL FIBRILLATION, SEVERE PROTEIN-CALORIE MALNUTRITION, ANASARCA, DECUBITUS ULCERATION TO POLYNEUROPATHY, ACUTE KIDNEY INJURY WITH UNDERLYING CHRONIC KIDNEY DISEASE, DYSPHAGIA, STATUS POST PERCUTANEOUS ENDOSCOPIC GASTROSTOMY, UNDERLYING GRAVES' DISEASE EXACERBATION. PT CURRENTLY TOLERATING TRACH COLLAR. A COGNITIVE-LINGUISTIC EVALUATION COMPLETED SECONDARY TO Pt OFF OF SEDATION AND ON TRACH COLLAR. PMV ORDER NOT IN PLACE AT THIS TIME. TRACH SHILEY #8, DEFLATED AT THIS TIME ON TRACH COLLAR. EVALUATION: Pt IS ABLE TO ANSWER SIMPLE YES/NO QUESTIONS WITH 60% ACCURACY. Pt FOLLOWED SIMPLE 1-STEP COMMANDS WITH 60% ACCURACY. Pt ALERT AND ORIENTED TO SELF INDEPENDENTLY. Pt ATTEMPTING TO VOICE IN WORD UTTERANCE TO ANSWER SIMPLE QUESTIONS WITH MOUTHING ACCOMPLISHED. Pt WITH NO VOICING AT THIS TIME SECONDARY TO TRACH IN PLACE. Pt WITH DECREASED ATTENTION TO TASK AND EASILY DISTRACTED REQUIRING REDIRECTION DURING THE EVALUATION. SKILLED SPEECH THERAPY IS RECOMMENDED AT THIS TIME TARGETING COGNITIVE-LINGUISTIC GOALS TARGETING THE AFOREMENTIONED WEAKNESSES. Pt PRESENTS WITH MODERATE COGNITIVE-LINGUISTIC DEFICITS AT THIS TIME. RECOMMENDATIONS: 1. COGNITIVE-LINGUISTIC TREATMENT RECOMMENDED 3-5XWEEK TOLERATED. LTG#1: Pt WILL INCREASE COGNITIVE-LINGUISTIC GOALS LANGUAGE SKILLS TO EXPRESS WANTS AND NEEDS INDEPENDENTLY. STG#1: Pt WILL LABEL COMMON OBJECTS VIS MOUTHING/VOICING WITH 80% ACCURACY. STG#2: Pt WILL ANSWER SIMPLE YES/NO QUESTIONS USING MOUTHING OR GESTURES WITH 80% ACCURACY. STG#3: Pt WILL FOLLOW SIMPLE 2-3 STEP COMMANDS INDEPENDENTLY WITH 80% ACCURACY. STG#4: Pt WILL BE AAOX3 WITH 100% ACCURACY. 2. PMV EVALUATION IS RECOMMENDED WHEN OK WITH MD. Addendum: 01/08/19 at 1052 by TAYLER SIGALA, [facility] Amended: Links added.
[2019-01-08 11:05] LABS: ABG BASE EXCESS -1.7 mmol/L (-2.0-3.0); ABG HCO3 19.6 mmol/L (21.0-28.0); ABG OXYGEN SATURATION 99.4 % (95.0-99.0); ABG PCO2 26 mmHg (32-45)
--- NOTE | 2019-01-08 11:12 | NUR ---
DR. SOSA IN ROOM ASSESSING ABD DRSG AND OSTOMY. DR. SOSA SPEAKING WITH PT. RE:PLAN OF CARE. DR. SOSA SPOKE WITH TECHNICAL ADVISOR RE:D/C DISPOSITION.
[2019-01-08] MEDS: METOPROLOL TARTRATE 1 MG/ML 5ML VIAL IV PRN ×2 (11:36→18:40)
--- NOTE | 2019-01-08 12:12 | NUR ---
DR. SMITH IN ROOM SPEAKING WITH PT. RE:PLAN OF CARE AND DISCHARGE DISPOSITION.
--- NOTE | 2019-01-08 14:22 | NUR ---
DR. CARLISLE IN ROOM SPEAKING WITH PT. RE:PLAN OF CARE.
--- NOTE | 2019-01-08 16:33 | NUR ---
DC PLAN PATIENT ACCEPTED TO [facility]. MOT SIGNED AND IN CHART. EMS SET UP PATIENT VENTED BED BOUND. ALREADY SENT TO [facility] FOR PRE AUTH FOR AMBULANCE WELL WITH ALL INDICATED INFORMATION. Addendum: 01/08/19 at 1635 by SUNDEEP JIMENEZ RN CM Amended: Links added.
--- NOTE | 2019-01-08 18:15 | NUR ---
REPORT TO ANAHY VIERA LVN AT [facility].
--- NOTE | 2019-01-08 20:08 | NUR ---
NOTIFIED AFIA YOUNG PT.'S DAUGHTER, VIA TELEPHONE RE:PENDING TRANSFER TO [facility]; VERBALIZED UNDERSTANDING.
[2019-01-08] MEDS: ATORVASTATIN CALCIUM 20 MG TABLET PO SCH (21:08)
[2019-01-09] VITALS: BP 114/73
[2019-01-10] MEDS ORDERED: HYDROCORTISONE SOD SUCCINATE 100 MG/2 ML VIAL IV SCH
== END 2019-01-09 02:02 | DRG 853 ==
LOC: 2CH 13:53 → 2BH 01-03 16:33
PROVIDERS: ADMIT Internal Medicine; ATTEND Internal Medicine
PROC: 0D1B0Z4 Bypass Ileum to Cutaneous, Open Approach (ICD-10-PCS; principal; 2018-12-31 16:03)
PROC: 0DBB0ZZ Excision of Ileum, Open Approach (ICD-10-PCS; 2018-12-31 16:03)
PROC: 5A1955Z Respiratory Ventilation, Greater than 96 Consecutive Hours (ICD-10-PCS; 2018-12-31 16:03)
PROC: 5A09357 Assistance with Respiratory Ventilation, Less than 24 Consecutive Hours, Continuous Positive Airway Pressure (ICD-10-PCS; 2019-01-05)
PROC: 5A1935Z Respiratory Ventilation, Less than 24 Consecutive Hours (ICD-10-PCS; 2019-01-05)
PROC: 5A1935Z Respiratory Ventilation, Less than 24 Consecutive Hours (ICD-10-PCS; 2019-01-07)
PROC: 5A1935Z Respiratory Ventilation, Less than 24 Consecutive Hours (ICD-10-PCS; 2019-01-08)
PROC: 5A1935Z Respiratory Ventilation, Less than 24 Consecutive Hours (ICD-10-PCS; 2019-01-09)
DX: A41.9 Sepsis, unspecified organism (principal); L89.153 Pressure ulcer of sacral region, stage 3; L89.303 Pressure ulcer of unspecified buttock, stage 3; L89.893 Pressure ulcer of other site, stage 3; K63.1 Perforation of intestine (nontraumatic); N17.0 Acute kidney failure with tubular necrosis; J96.21 Acute and chronic respiratory failure with hypoxia; R53.2 Functional quadriplegia; G93.41 Metabolic encephalopathy; E43 Unspecified severe protein-calorie malnutrition; K65.9 Peritonitis, unspecified; R65.21 Severe sepsis with septic shock; G72.81 Critical illness myopathy; I48.92 Unspecified atrial flutter; K63.2 Fistula of intestine; L03.311 Cellulitis of abdominal wall; Z66 Do not resuscitate; R65.20 Severe sepsis without septic shock; Z93.0 Tracheostomy status; D64.9 Anemia, unspecified; D69.6 Thrombocytopenia, unspecified; E05.00 Thyrotoxicosis with diffuse goiter without thyrotoxic crisis or storm; E11.21 Type 2 diabetes mellitus with diabetic nephropathy; E11.22 Type 2 diabetes mellitus with diabetic chronic kidney disease; Z68.31 Body mass index [BMI] 31.0-31.9, adult; E78.5 Hyperlipidemia, unspecified; E87.5 Hyperkalemia; G62.9 Polyneuropathy, unspecified; I12.9 Hypertensive chronic kidney disease with stage 1 through stage 4 chronic kidney disease, or unspecified chronic kidney disease; I48.0 Paroxysmal atrial fibrillation; N18.9 Chronic kidney disease, unspecified; R13.10 Dysphagia, unspecified; Z16.24 Resistance to multiple antibiotics; Z74.01 Bed confinement status; Z79.2 Long term (current) use of antibiotics; Z87.891 Personal history of nicotine dependence; Z93.1 Gastrostomy status; Z83.3 Family history of diabetes mellitus; Z82.49 Family history of ischemic heart disease and other diseases of the circulatory system
CPT/HCPCS: 36415; 36600; 71045; 80048; 80053; 81001; 82040; 82140; 82533; 82803; 82948; 83605; 83735; 84100; 84443; 85025; 85027; 85610; 85730; 86850; 86900; 86901; 88307; 92522; 94002; 94003; 94640; 94664; 97039; A5061; G0378; J0360; J0878; J1450; J1720; J1815; J2185; J3010; J3475; J3480; J3490; J7030; J7120; P9045

== ENCOUNTER → 2020-06-27 | Outpatient (CLI) | payer MEDICARE ==
[~2020-06-27] MED LIST changes: +ASCO250T70 PO; +ASPI-1197 PO; -ASPI-555 PO; +ATOR10TA69 PO; -ATOR20TA65 PO; -CHOL500050 PO; +CYCL30DR OP; +DEXT1DRO OP; +FAMO-136 PO; +FOLI1TAB61 PO; -HYDR12.530 PO; +LEVO50TA4 PO; +LORA10TA7 PO; -LOSA100T58 PO; +MULT-1203 PO; +PREG75 PO; +ZINC220C6 PO
== END | disposition home or self-care (01) ==
LOC: SHCH 15:54
PROVIDERS: ATTEND Internal Medicine Cardiovascular Disease
DX: I73.9 Peripheral vascular disease, unspecified (principal)
CPT/HCPCS: 93925

== ENCOUNTER → 2020-06-30 | Outpatient (CLI) | payer MEDICARE ==
[~2020-06-30] MED LIST changes: +REGADENOSON 0.4 MG/5 ML PF SYG IVP SCH
== END | disposition home or self-care (01) ==
LOC: SHCH 08:53
PROVIDERS: ATTEND Internal Medicine Cardiovascular Disease
DX: R94.31 Abnormal electrocardiogram [ECG] [EKG] (principal); Z01.810 Encounter for preprocedural cardiovascular examination; Z72.0 Tobacco use
CPT/HCPCS: 78452; 93017; 96374; A9500 ×2; J2785